=== PATIENT | male | born 1990 | race Caucasian/White ===

== ENCOUNTER 2017-10-02 11:57 | Emergency (ER) | payer SELFPAY ==
[2017-10-02 12:13] VITALS: BMI 31.8
[2017-10-02 12:15] VITALS: BP 141/90; PULSE 99; RESP 20; TEMP 98.9; O2SAT 97
--- NOTE | 2017-10-02 14:08 | C.PDOC ---
History Of Present Illness 27 year old male presents to the ED for evaluation of nasal congestion, throat pain, cough productive of green sputum and subjective fever which began 4 days ago. [place] has been [place] this country for around 1 week. He denies nausea, vomiting, and diarrhea. Time Seen by Provider: 10/02/17 12:32 Chief Complaint (Nursing): Cough, Cold, Congestion History Per: Patient History/Exam Limitations: no limitations Onset/Duration Of Symptoms: Days (4) Current Symptoms Are (Timing): Still Present Associated Symptoms: Fever, Sore Throat, Cough, Sputum (green), Nasal Congestion Additional History Per: Patient Past Medical History Reviewed: Historical Data, Nursing Documentation, Vital Signs Vital Signs: Last Vital Signs Temp 98.9 F 10/02/17 12:13 Pulse 99 H 10/02/17 12:13 Resp 20 10/02/17 12:13 BP 141/90 10/02/17 12:13 Pulse Ox 97 10/02/17 14:12 - Medical History PMH: No Chronic Diseases Surgical History: No Surg Hx Family History: States: [place] - Social History Hx Alcohol Use: No Hx Substance Use: No - Immunization History Hx Tetanus Toxoid Vaccination: No Hx Influenza Vaccination: No Hx Pneumococcal Vaccination: No Review Of Systems Constitutional: Positive for: Fever ENT: Positive for: Nose Congestion, Throat Pain Respiratory: Positive for: Cough, Sputum (green) Gastrointestinal: Negative for: Nausea, Vomiting, Diarrhea Physical Exam - Physical Exam Appears: Non-toxic, No Acute Distress Skin: Normal Color, Warm, Dry Head: Atraumatic, Normacephalic Eye(s): bilateral: Normal Inspection Ear(s): Bilateral: Normal Nose: Normal, No Discharge Oral Mucosa: Moist Throat: Erythema (mild), No Exudate Neck: Supple Chest: Symmetrical, No Deformity, No Tenderness Cardiovascular: Rhythm Regular, No Murmur Respiratory: Normal Breath Sounds, No Rales, No Rhonchi, No Wheezing Extremity: Normal ROM, Capillary Refill (less than 2 seconds ) Neurological/Psych: Oriented x3, Normal Speech, Normal Cognition Gait: Steady ED Course And Treatment O2 Sat by Pulse Oximetry: 97 (on RA) Pulse Ox Interpretation: Normal Medical Decision Making Medical Decision Making: Progress: Tylenol PO administered. Throat culture obtained. Rapid Strep test ordered and resulted negative. On reassessment, patient is resting comfortably, showing no signs of distress, remains afebrile and is stable for discharge. Patient is advised to follow up with PMD within 1-2 days for further evaluation. Disposition Counseled Patient/Family Regarding: Diagnosis, Need For Followup - Disposition Referrals: [facility] [Outside] Disposition: HOME/ ROUTINE Disposition Time: 14:27 Condition: STABLE Instructions: Upper Respiratory Infection (ED) Forms: [facility] (Al[place]ian), General Discharge Instructions - Clinical Impression Clinical Impression: Upper respiratory infection - PA / PRODUCT OWNER / Resident Statement MD/DO has reviewed & agrees with the documentation as recorded. - Scribe Statement The provider has reviewed the documentation as recorded by the Scribe (Dalia Braga) All medical record entries made by the Scribe were at my direction and personally dictated by me. I have reviewed the chart and agree that the record accurately reflects my personal performance of the history, physical exam, medical decision making, and the department course for this patient. I have also personally directed, reviewed, and agree with the discharge instructions and disposition.
== END 2017-10-02 14:32 | disposition home or self-care (01) ==
LOC: C.ER 11:57
DX: J06.9 Acute upper respiratory infection, unspecified (principal)